=== PATIENT | male | born 1990 | race Caucasian/White ===

== ENCOUNTER 2019-04-11 12:42 | Day surgery (SDC) | payer OTHER ==
[~2019-04-11 12:42] MED LIST: CEFAZOLIN 2 GM/50 ML (PMX) 50 ML IVPB; LACTATED RINGER'S 1,000 ML (ENTER RATE) IV
[2019-04-11] MEDS ORDERED: OXYCODONE/ACETAMINOPHEN (5/325) TAB PO (16:00)
[2019-04-11] MEDS ORDERED: ONDANSETRON 4 MG INJ IV (16:00)
[2019-04-11] MEDS ORDERED: PROCHLORPERAZINE 10 MG INJ IV (16:00)
[2019-04-11] MEDS ORDERED: DIPHENHYDRAMINE 50 MG INJ IV (16:00)
[2019-04-11] MEDS ORDERED: FENTAnyl 50 MCG/ML VIAL IV (16:00)
[2019-04-11] MEDS ORDERED: HYDROmorphONE 1 MG/5 ML IV SYRINGE IV ×3 (16:00)
[2019-04-11] MEDS ORDERED: MEPERIDINE 25 MG INJ IV (16:00)
[2019-04-11] MEDS ORDERED: MIDAZOLAM 1 MG/ML 2 ML INJ (16:04)
[2019-04-11] MEDS ORDERED: LIDOCAINE 2% (SDV) 5 ML INJ (16:04)
[2019-04-11] MEDS ORDERED: PROPOFOL 20 ML ×2 (16:04→16:23)
[2019-04-11] MEDS ORDERED: SUCCINYLCHOLINE CHLORIDE 100 MG/5 ML SYG IV (16:04)
[2019-04-11] MEDS ORDERED: CEFAZOLIN 1 GM INJ (16:23)
[2019-04-11] MEDS ORDERED: ROCURONIUM 50 MG INJ (16:24)
[2019-04-11] MEDS ORDERED: FAMOTIDINE 20 MG INJ (16:24)
[2019-04-11] MEDS ORDERED: ONDANSETRON 4 MG INJ (16:24)
[2019-04-11] MEDS ORDERED: FENTAnyl 50 MCG/ML VIAL (16:31)
[2019-04-11] MEDS: BUPIVACAINE 0.5% (SDV) 30 ML INJ (16:37)
[2019-04-11] MEDS ORDERED: SUGAMMADEX SODIUM 200 MG/2 ML VIAL IV ×2 (17:03→17:06)
[2019-04-11] MEDS: ALBUTEROL 0.083% (NEB) 2.5 MG/3 ML AMP HHN (17:56)
[2019-04-11] MEDS ORDERED: IPRATROPIUM (NEB) 0.5 MG/2.5 ML AMP HHN (18:00)
== END 2019-04-11 18:40 | disposition home or self-care (01) ==
LOC: SDS 12:42
DX: M24.541 Contracture, right hand (principal); L90.5 Scar conditions and fibrosis of skin; E11.9 Type 2 diabetes mellitus without complications
CPT/HCPCS: 14040; 82962; 94664